=== PATIENT | female | born 1985 | race Caucasian/White ===

== ENCOUNTER 2018-12-10 15:13 | Inpatient (IN) ==
[2018-12-10] MEDS: oxyCODONE/ACETAMINOPHEN 5-325 MG TABLET PO PRN ×2 (16:54→18:48)
[2018-12-10 17:50] LABS: Basophils # 0.1 10*3/uL (0.0-0.2); Basophils % 0.7 % (0.0-0.8); Eosinophils # 0.3 10*3/uL (0.0-0.87); Eosinophils % 4.4 % (0.00-10.9); Hematocrit 37.7 VOL% (35.7-47.0); Hemoglobin 12.7 GM/DL (12.0-16.0); Immature Granulocytes % 0.5 %; Immature Granulocytes Absolute 0.04 #; Lymphocytes # 2.2 10*3/uL (1.4-4.0); Lymphocytes % 29.4 % (21.3-54.2); Mean Corpuscular HGB Conc 33.7 GM/DL (32-36); Mean Corpuscular Volume 81.8 FL (87-102); Mean Platelet Volume 9.1 FL (9.6-12.0); Monocytes % 7.4 % (1.7-12.7); Neutrophils % 57.6 % (38.7-73.9); Platelet Count 268 T/CUMM (130-400); Red Blood Count 4.61 MC/CUMM (3.8-5.5); Red Cell Distribution Width 12.2 % (9.3-17.3); White Blood Count 7.5 T/CUMM (4-12)
[2018-12-10] MEDS ORDERED: METHOCARBAMOL 500 MG TABLET PO PRN (17:58)
[2018-12-10] MEDS: DEXTROSE 5% NACL 0.45% 1,000 ML IV SCH (18:18)
[2018-12-10] MEDS: ONDANSETRON 4 MG/2 ML VIAL IV PRN (18:19)
[2018-12-10] MEDS: PIPERACILLIN/TAZOBACTAM 3,375 MG in SODIUM CHLORIDE 0.9% 100 ML IV SCH (18:19)
[2018-12-10] MEDS ORDERED: METHOCARBAMOL 500 MG TABLET PO SCH (21:00)
[2018-12-10] MEDS ORDERED: PREGABALIN 50 MG CAPSULE PO SCH (21:00)
[2018-12-10 23:11] LABS: Apearance,Urine CLEAR (Clear); Bilirubin,Urine Negative (Negative); Blood, Urine Small mg/dL (Negative); Glucose,Urine (UA) >=500 mg/dL (Negative); Ketones,Urine 5 mg/dL (Negative); Nitrite,Urine Negative (Negative); Protein,Urine Negative; RBC,Urine 1 /HPF (0-4); Squamous Epithelial Cell,Urine Occasional /HPF (0-10); Urine Color Straw (Yellow); Urine Urobilinogen < 2.0 EU/DL (0.2-1.0); WBC,Urine 3 /HPF (0-6)
[2018-12-11] MEDS: oxyCODONE/ACETAMINOPHEN 5-325 MG TABLET PO PRN ×4 (00:47→22:26)
[2018-12-11] MEDS: ONDANSETRON 4 MG/2 ML VIAL IV PRN ×4 (00:48→19:11)
[2018-12-11] MEDS: PIPERACILLIN/TAZOBACTAM 3,375 MG in SODIUM CHLORIDE 0.9% 100 ML IV SCH ×3 (00:55→16:52)
[2018-12-11] MEDS: Empagliflozin [Jardiance] 25 MG PO SCH (08:06)
[2018-12-11] MEDS: DEXTROSE 5% NACL 0.45% 1,000 ML IV SCH ×3 (08:07→16:53)
[2018-12-11] MEDS: TRIAMTERENE/HCTZ 37.5-25 MG TABLET PO SCH (08:07)
[2018-12-11] MEDS: metFORMIN 500 MG TABLET PO SCH ×2 (08:07→16:52)
[2018-12-11] MEDS ORDERED: diphenhydrAMINE 50 MG/1 ML VIAL IV ONE (18:35)
[2018-12-11] MEDS ORDERED: hydrOXYzine HCL 25 MG TABLET PO ONE (18:36)
[2018-12-11] MEDS: PREGABALIN 50 MG CAPSULE PO PRN (22:30)
[2018-12-12] MEDS: ONDANSETRON 4 MG/2 ML VIAL IV PRN ×3 (00:41→15:57)
[2018-12-12] MEDS: PIPERACILLIN/TAZOBACTAM 3,375 MG in SODIUM CHLORIDE 0.9% 100 ML IV SCH ×3 (02:35→18:18)
[2018-12-12] MEDS: metFORMIN 500 MG TABLET PO SCH ×2 (08:03→18:18)
[2018-12-12] MEDS: TRIAMTERENE/HCTZ 37.5-25 MG TABLET PO SCH (08:03)
[2018-12-12] MEDS: oxyCODONE/ACETAMINOPHEN 5-325 MG TABLET PO PRN (08:04)
[2018-12-12] MEDS: DEXTROSE 5% NACL 0.45% 1,000 ML IV SCH (08:07)
[2018-12-12] MEDS: Empagliflozin [Jardiance] 25 MG PO SCH (08:10)
[2018-12-12] MEDS ORDERED: hydrOXYzine HCL 25 MG TABLET PO PRN (10:33)
[2018-12-12] MEDS ORDERED: diphenhydrAMINE 50 MG/1 ML VIAL IV PRN (10:34)
[2018-12-12] MEDS: PREGABALIN 50 MG CAPSULE PO PRN (21:55)
[2018-12-13] MEDS: oxyCODONE/ACETAMINOPHEN 5-325 MG TABLET PO PRN (01:20)
[2018-12-13] MEDS: ONDANSETRON 4 MG/2 ML VIAL IV PRN ×2 (01:20→10:18)
[2018-12-13] MEDS: PIPERACILLIN/TAZOBACTAM 3,375 MG in SODIUM CHLORIDE 0.9% 100 ML IV SCH ×2 (01:21→10:19)
[2018-12-13] MEDS: DEXTROSE 5% NACL 0.45% 1,000 ML IV SCH (05:33)
[2018-12-13] MEDS: TRIAMTERENE/HCTZ 37.5-25 MG TABLET PO SCH (10:00)
[2018-12-13] MEDS: Empagliflozin [Jardiance] 25 MG PO SCH (10:00)
[2018-12-13] MEDS: metFORMIN 500 MG TABLET PO SCH (10:00)
[2018-12-13] MEDS ORDERED: SULFAMETHOX/TRIMETHOPRIM 800-160 MG TABLET PO SCH (10:00)
[2018-12-13] MEDS: PREGABALIN 50 MG CAPSULE PO PRN (10:14)
[2018-12-13 11:38] VITALS: BP 121/82
== END 2018-12-13 14:53 | disposition home or self-care (01) | DRG 531 ==
LOC: N.5E
PROVIDERS: ADMIT Specialist; ATTEND Specialist